=== PATIENT | female | born 1995 | race Caucasian/White ===

== ENCOUNTER 2020-07-26 21:57 | Inpatient (IN) ==
[2020-07-26] MEDS ORDERED: ONDANSETRON 4 MG/2 ML VIAL IV PRN (23:13)
[2020-07-26] MEDS ORDERED: MEPERIDINE 50 MG/1 ML VIAL IM PRN (23:13)
[2020-07-26] MEDS ORDERED: LACTATED RINGERS 1,000 ML IV SCH (23:30)
[2020-07-26 23:39] LABS: Basophils % 0.1 % (0.0-0.8); Eosinophils # 0.1 10*3/uL (0.0-0.87); Eosinophils % 1.2 % (0.00-10.9); Hematocrit 35.1 VOL% (35.7-47.0); Hemoglobin 11.6 GM/DL (12.0-16.0); Immature Granulocytes % 0.4 %; Immature Granulocytes Absolute 0.04 #; Lymphocytes # 2.1 10*3/uL (1.4-4.0); Lymphocytes % 21.7 % (21.3-54.2); Mean Corpuscular Volume 95.6 FL (87-102); Mean Platelet Volume 11.1 FL (9.6-12.0); Monocytes % 7.3 % (1.7-12.7); Neutrophils % 69.3 % (38.7-73.9); Platelet Count 247 T/CUMM (130-400); Red Blood Count 3.67 MC/CUMM (3.8-5.5); Red Cell Distribution Width 13.4 % (9.3-17.3); White Blood Count 9.4 T/CUMM (4-12)
[2020-07-27] MEDS: BUTORPHANOL 2 MG/ML VIAL IV PRN ×2 (04:03→08:08)
[2020-07-27] MEDS ORDERED: OXYTOCIN/LR 20 UNIT/1,000 ML BAG IV ONE ×2 (07:23→13:55)
[2020-07-27] MEDS ORDERED: PROMETHAZINE 25 MG/1 ML VIAL IM ONE (07:44)
[2020-07-27] MEDS ORDERED: NALOXONE 0.4 MG/ML VIAL IV PRN (07:44)
[2020-07-27] MEDS ORDERED: ONDANSETRON 4 MG/2 ML VIAL IV ONE (07:44)
[2020-07-27] MEDS ORDERED: diphenhydrAMINE 50 MG/1 ML VIAL IV PRN ×2 (07:44)
[2020-07-27] MEDS ORDERED: CITRIC ACID/SODIUM CITRATE 30 ML UDCUP PO ONE (07:44)
[2020-07-27] MEDS ORDERED: FAMOTIDINE 20 MG/2 ML VIAL IV ONE (07:44)
[2020-07-27] MEDS ORDERED: ePHEDrine 50 MG/ML VIAL IV PRN (07:44)
[2020-07-27] MEDS ORDERED: LACTATED RINGERS 1,000 ML IV ONE (07:44)
[2020-07-27] MEDS ORDERED: hydrOXYzine HCL 25 MG/1 ML VIAL IM PRN (07:44)
[2020-07-27] MEDS ORDERED: OXYTOCIN/LR 20 UNIT/1,000 ML BAG IV SCH (08:00)
[2020-07-27] MEDS ORDERED: LACTATED RINGERS 1,000 ML IV SCH (08:00)
[2020-07-27] MEDS ORDERED: fentaNYL 2 MCG/ROPIV 0.2% EPID 100 ML EPIDURAL SCH (08:00)
[2020-07-27] MEDS ORDERED: MEPERIDINE 50 MG/1 ML VIAL IV PRN (10:41)
[2020-07-27 12:38] LABS: Bilirubin,Urine Negative (Negative); Blood, Urine Negative (Negative); Glucose,Urine (UA) Negative (Negative); Ketones,Urine Negative (Negative); Mucus,Urine Few /LPF (Occasional); Nitrite,Urine Negative (Negative); Protein,Urine Negative; RBC,Urine <1 /HPF (0-4); Urine Appearance CLEAR (Clear); Urine Color Yellow (Yellow); Urine Urobilinogen < 2.0 EU/DL (0.2-1.0); WBC,Urine 1 /HPF (0-6)
[2020-07-27] MEDS ORDERED: TRANEXAMIC ACID 1,000 MG/10 ML VIAL ONE (12:46)
[2020-07-27] MEDS ORDERED: METHYLERGONOVINE 0.2 MG/1 ML AMP ONE (12:46)
[2020-07-27] MEDS ORDERED: LIDOCAINE 1% 50 ML VIAL ONE (12:47)
[2020-07-27] MEDS ORDERED: CARBOPROST TROMETHAMINE 250 MCG/ML AMP IM ONE (12:47)
[2020-07-27] MEDS ORDERED: SODIUM CHLORIDE 0.9% 0 ML IV ONE (12:48)
[2020-07-27] MEDS ORDERED: ONDANSETRON 4 MG/2 ML VIAL IV PRN (13:55)
[2020-07-27] MEDS ORDERED: BENZOCAINE 20%/MENTHOL 0.5% SPRAY 56 GM CAN TOP PRN (13:55)
[2020-07-27] MEDS ORDERED: BISACODYL 10 MG SUPP RECTAL PRN (13:55)
[2020-07-27] MEDS ORDERED: DIPH/TET/ACEL PERT BOOSTER VACCINE 0.5 ML VIAL IM ONE (13:55)
[2020-07-27] MEDS ORDERED: MEASLES/MUMPS/RUBELLA VACCINE 0.5 ML VIAL SUBCUT ONE (13:55)
[2020-07-27] MEDS ORDERED: oxyCODONE/ACETAMINOPHEN 5-325 MG TABLET PO PRN ×2 (13:55)
[2020-07-27] MEDS ORDERED: HYDROCORTISONE 2.5% RECTAL CREAM 30 GM TUBE TOP PRN (13:55)
[2020-07-27] MEDS ORDERED: ACETAMINOPHEN 325 MG TABLET PO PRN (13:55)
[2020-07-27] MEDS ORDERED: WITCH HAZEL PADS 100/JAR TOP PRN (13:55)
[2020-07-27] MEDS ORDERED: RHO(D) IMMUNE GLOBULIN 300 MCG SYRINGE IM ONE (13:55)
[2020-07-27] MEDS ORDERED: LANOLIN 50% CREAM 0.3 OZ TUBE TOP PRN (13:55)
[2020-07-27 13:57] LABS: Cord Venous Blood HCO3 20.8 MMOL/L; Cord Venous Blood PCO2 41.6 MMHG; Cord Venous Blood PO2 34.8 MMHG
[2020-07-27] MEDS: IBUPROFEN 800 MG TABLET PO PRN (20:52)
[2020-07-27] MEDS: DOCUSATE SODIUM 100 MG CAPSULE PO SCH (20:53)
[2020-07-28 06:15] LABS: Basophils % 0.3 % (0.0-0.8); Eosinophils # 0.1 10*3/uL (0.0-0.87); Eosinophils % 0.9 % (0.00-10.9); Hematocrit 30.6 VOL% (35.7-47.0); Hemoglobin 10.1 GM/DL (12.0-16.0); Immature Granulocytes % 0.6 %; Immature Granulocytes Absolute 0.06 #; Lymphocytes # 1.6 10*3/uL (1.4-4.0); Lymphocytes % 15.2 % (21.3-54.2); Mean Corpuscular Volume 95.3 FL (87-102); Mean Platelet Volume 10.6 FL (9.6-12.0); Platelet Count 190 T/CUMM (130-400); Red Blood Count 3.21 MC/CUMM (3.8-5.5); Red Cell Distribution Width 13.4 % (9.3-17.3); White Blood Count 10.6 T/CUMM (4-12)
[2020-07-28] MEDS: DOCUSATE SODIUM 100 MG CAPSULE PO SCH (21:03)
[2020-07-29] MEDS: IBUPROFEN 800 MG TABLET PO PRN (09:34)
[2020-07-29] MEDS: DOCUSATE SODIUM 100 MG CAPSULE PO SCH (09:34)
[2020-07-29 09:58] VITALS: BP 122/69
[2020-07-29] MEDS ORDERED: INFLUENZA VIRUS VACCINE 0.5 ML SYRINGE IM ONE (11:43)
== END 2020-07-29 12:30 | disposition home or self-care (01) | DRG 807 ==
LOC: N.LDOUT 21:57 → N.LD 22:02 → N.OB 07-27 17:23
PROVIDERS: ADMIT Specialist; ATTEND Specialist